=== PATIENT | female | born 1955 | race Caucasian/White ===

== ENCOUNTER 2025-09-07 11:50 | Emergency (ER) | payer MEDICARE, SELFPAY ==
[2025-09-07 11:53] VITALS: BP 183/96
--- NOTE | 2025-09-07 12:49 | ED.GENMED ---
History of Present Illness
General
Chief Complaint: Fainting/Passed Out
Source: patient
Exam Limitations: none
Time Seen by Provider: 09/07/25 12:14
Nursing documentation reviewed up to this point in time: agreed with
History of Present Illness
History of Present Illness:
Patient is a 70-year-old female with history of hypertension who presents to the emergency department after syncopal event. Patient states that around 1030 this morning she was standing in her daughter's kitchen cooking when she became very hot and
sweaty. She then felt lightheaded prior to falling. She states she was briefly unconscious, only for a few seconds. This fall was witnessed and she is confident that she did not hit her head. Patient denies any preceding chest pain or shortness
of breath.
Since the syncopal event, she has felt well and denies any symtpoms of lightheadedness, dizziness, or weakness.
She states that she landed on her left side and reports left shoulder pain and left rib pain. She denies any neck pain, back pain, or pain in lower extremities. No headache, visual changes, or vomiting.
Patient states she had not eaten anything prior to syncopal event this morning. She did have a similar episode a few months ago however was able to sit down prior to fainting.
Patient is not on any oral anticoagulation.
Review of Systems
Review of Systems
Allergies reviewed?: Yes
All Other Systems: ROS reviewed and negative except as documented in HPI and ROS
Phy Exam
Physical Exam
Physical Exam:
Vitals: Hypertensive, otherwise vital signs stable. Afebrile
General: Patient is very well-appearing, in no distress
Skin: Warm and dry, no rashes or lesions
Head: Normocephalic, atraumatic
Eyes: Sclera nonicteric. EOMs intact. No nystagmus.
Throat: Protecting airway
Neck: Normal ROM, no cervical spine tenderness, no meningismus
Cardiac: Regular rate and rhythm, no murmurs. 2+ palpable radial pulse. Tenderness to left lateral chest wall without ecchymoses or deformity.
Pulm: Normal respiratory effort. Lungs clear bilaterally
Abdomen: No abdominal tenderness.
Extremities: No evidence of traumatic injuries to bilateral lower extremities. Minor contusion to left shoulder. Bilateral upper and lower extremities neurovascularly intact
Neuro: AAOx3. CN II-XII grossly intact. No facial droop or asymmetry. Steady gait. No focal neurologic deficits.
Psychiatric: Normal affect.
Course
Orders/Labs/Results
Orders:
Orders
09/07/25 11:58
Electrocardiogram (*1) Urgent
Reason for Study: Syncope
EKG- Treatment ONCE
09/07/25 12:48
0.9% Sodium Chloride 1000 ml [Nss] 1,000 ml IV BOLUS
Acetaminophen [Tylenol] 650 mg PO NOW STA
Ribs, Left 3 View W/PA Chest CR [CR Ribs-left 3 Vw W/pa Chest] Urgent
Comment:
Reason For Exam: fall, left rib pain
Shoulder, Left 2 View CR [CR Shoulder - Left Min 2 View*] Urgent
Comment:
Reason For Exam: fall, left shoulder pain
09/07/25 13:01
Complete Blood Count/With Diff Urgent
Comprehensive Metabolic Panel Urgent
Troponin I Urgent
09/07/25 15:22
Incentive Spirometry [Rx Incentive Spirometry] [RESP] Urgent
Frequency: q1h while awake
09/07/25 15:28
Sling Left-Treatment ONCE
Abnormal Lab Results
09/07/25
13:01
WBC 12.3 H 10^3/uL
(4.8-10.8)
Abs Immat Gran (auto) 0.1 H 10^3/uL
(0-0.05)
Absolute Neuts (auto) 9.5 H 10^3/uL
(1.4-6.5)
Neutrophils % 77.3 H %
(42.2-75.2)
Lymphocytes % 14.1 L %
(20.5-51.1)
Sodium 129 L mmol/L
(135-145)
Chloride 95 L mmol/L
(98-107)
BUN 19 H mg/dl
(7-17)
Glucose 109 H mg/dl
(70-99)
09/07/25 13:01
09/07/25 13:01
Vital Signs
Initial and Last Documented VS:
Initial Vital Signs
Temp Pulse Resp BP Pulse Ox
97.5 F 70 18 183/96 100
09/07/25 11:53 09/07/25 11:53 09/07/25 11:53 09/07/25 11:53 09/07/25 11:53
Last Documented Vital Signs
Temp Pulse Resp BP Pulse Ox
97.5 F 64 16 161/77 100
09/07/25 11:53 09/07/25 15:15 09/07/25 15:15 09/07/25 15:00 09/07/25 12:49
MDM/Problems Addressed
Differential Diagnosis Includes:
Not limited to: Acute dehydration, electrolyte abnormality, vasovagal syncope, orthostatic hypotension, proximal humerus fracture, shoulder dislocation, rib fracture, cardiac arrhythmia, etc.
MDM/Problems Addressed:
70-year-old female presenting after syncopal event at home today proceeded by lightheadedness and feeling of warmth/heat. No chest pain or shortness of breath. No associated head strike. She has been asymptomatic since fall many hours ago. She does
reports left shoulder and left sided chest wall pain as she apparently landed on that side.
Vitals stable. On exam, patient appears well and in no distress. Cardio/pulmonary assessment unremarkable. No evidence of head or neck trauma. She is alert and oriented, neurologically intact. Minor contusion noted to left shoulder as well as
reproducible tenderness to left lateral chest wall.
History seems most consistent with likely vasovagal syncope versus dehydration. Less likely cardiac. Do not suspect seizure. Will check labs, cardiac enzyme, EKG. Will give IV fluids, tylenol. Will check x-ray imaging of left shoulder and left rib
series.
Update: labs with mild leukocytosis, possibly reactive or related to her recent root canal as she is on antibiotics. Mild hyponatremia noted and discussed with patient � advised repeat lab work in one week.
EKG without evidence of acute ischemia, troponin undetectable.
Left rib series reveals minimally displaced fracture of left lateral fifth rib. No associated pneumothorax. Shoulder x-ray unremarkable.
Patient remains asymptomatic in ED. She has received a liter of IV fluids. Favor vasovagal syncope versus dehydration. No evidence of serious cause.
Her left chest wall pain is well managed and ultimately feel that she is stable for discharge home. Discussed pain control and incentive spirometer. Advises repeat lab work with PCP to ensure sodium trending up. Advised to stay well hydrated. While
today I have an extremely low suspicion for cardiac process � did discuss outpatient follow-up to consider possible Holter monitor for further syncope workup. Strict return precautions discussed. Patient comfortable with discharge home.
Chronic conditions affecting care:
Hypertension
Acute Exacerbation and/or Progression of Chronic Illness:
Acutely hypertensive
*Radiology
Radiology exam reviewed: preliminary read by ED provider (Left rib series x-ray reviewed by me-fifth rib fracture; shoulder x-ray reviewed by me without evidence of acute fracture or dislocation) and radiology read reviewed
*Pulse Oximetry
SaO2: 100
Oxygen Mode of Delivery: Room air
Patient hypoxic: no
*EKG
Interpreted by ED Provider?: Yes
EKG Intrepretation Date: 09/07/25
Interpretation: abnormal
Comparison EKG: no comparison EKG present
Heart Rate: 64
Rate: normal
Rhythm: sinus and PVC's
[place]: normal axis
Interval: normal QT interval
QRS Pattern: left vent hypertrophy
Ischemia: no ischemia
*[place] Operator Interpretation
Rate: normal
Interpretation: normal
Heart Rate: 62
Rhythm: sinus
*Critical Care Note
Total Time (30-74mins, 75-104mins- exclusive of procedures): Not Applicable
ED Attending Note
-
Portions of this chart may have been created with voice recognition software.� Occasional wrong word or��sound alike� substitutions may have occurred due to the inherent limitations of voice recognition software.
Discharge Plan
Departure
Patient Disposition: Home (Routine Discharge)
Date of Disposition: 09/07/25
Time of Disposition: 15:28
Patient with high blood pressure during this ER visit?: Yes
Condition: Good
Discharge Problem:
Syncope, Fracture of left fifth rib, Contusion of left shoulder
Instructions: Syncope (Fainting) (DC), Rib fracture or bruised rib - ED (DC), BLOOD PRESSURE
Referrals:
Jose F Kyle MD [Active, Cardiology] - Next open appointment
Tone Shanks MD [Active, Orthopedics]
Tariq Le MD [Family Provider, Family Practice] - Follow up in 5-7 days
Activity Restrictions/Additional Instructions:
RETURN TO THE EMERGENCY DEPARTMENT ANY HEADACHE/NECK PAIN, CHANGES IN MENTAL STATUS, CHEST PAIN, SHORTNESS OF BREATH, PERSISTENT LIGHTHEADEDNESS OR DIZZINESS, FEVER OR PRODUCTIVE COUGH, INTRACTABLE PAIN, WORSENING IN CURRENT SYMPTOMS, OR ANY OTHER
CONCERNS
- As discussed�your white blood cell count was mildly elevated today in the emergency department. Your sodium level was low. You were given a liter of IV fluids however please have your lab work repeated with your primary care within 1 week to
ensure trending up.
- You were found to have a fracture of your left fifth rib. Please continue to take Tylenol and/or Motrin and apply lidocaine patches as needed for pain. Use incentive spirometer 10 times per hour when awake to continually inflate your lungs.
- Follow-up with your primary care provider in 1 week for repeat lab work. Please see cardiology for further evaluation given the few episodes of syncope past few months. You may require further testing or heart monitoring.
Monitor your symptoms closely and return to the emergency department with any acute worsening/new symptoms or any other concerns
Interventions
Interventions:
*General Assessment Last Done: 09/07/25 11:53
*Neglect/Abuse Screening Last Done: 09/07/25 11:53
*ED COVID-19 Vaccine History Last Done: 09/07/25 13:08
*ED Influenza Vaccine History Last Done: 09/07/25 13:08
[facility] Fall Risk Assessment Tool Last Done: 09/07/25 13:08
*Risk Screen - Suicide (C-SSRS) Last Done: 09/07/25 13:09
*Nursing Disposition Last Done: 09/07/25 15:52
ED- Cardiac Assessment Last Done: 09/07/25 13:08
ED- Neurological Assessment Last Done: 09/07/25 13:08
Discharge Date and Time
Discharge Date/Time: 09/07/25 15:53
Print Language: [id number]
[2025-09-07] MEDS: TYLENOL 650 MG PO (13:02)
[2025-09-07] MEDS: NSS 1000 IV (13:02)
[2025-09-07 13:18] LABS: Hematocrit 37.2 % (37.0-47.0); Hemoglobin 13.6 g/dL (12.0-16.0); Mean Corp Hgb Conc. 36.6 g/dL (33.0-37.0); Mean Corpuscular Volume 82.9 fL (81.0-99.0); Nucleated Red Blood Cells % 0 %; Platelet Count 271 10^3/uL (130-400); Red Cell Dist. Width 13.0 % (11.5-14.5)
[2025-09-07 13:39] LABS: ALT (SGPT) 15 U/L (0-35); AST (SGOT) 24 U/L (14-36); Albumin 4.1 g/dl (3.5-5.0); Alkaline Phosphatase 74 U/L (38-126); Blood Urea Nitrogen 19 mg/dl (7-17); Calcium 9.5 mg/dl (8.4-10.2); Carbon Dioxide 27 mmol/L (22-30); Chloride 95 mmol/L (98-107); Glucose 109 mg/dl (70-99); Potassium 3.6 mmol/L (3.5-5.1); Sodium 129 mmol/L (135-145); Total Protein 7.1 g/dl (6.3-8.2); eGFR > 60.00
[2025-09-07 13:44] VITALS: BP 161/77
[2025-09-07 13:51] LABS: Troponin I < 0.012 ng/ml
[2025-09-07 14:00] VITALS: BP 161/73
[2025-09-07 15:00] VITALS: BP 161/77
== END 2025-09-07 15:53 | disposition home or self-care (01) ==
LOC: EMR 11:50
PROVIDERS: Physician Assistant; EMERGENCY PHYSICIAN Emergency Medicine; FAMILY PHYSICIAN Family Medicine
DX: R55 Syncope and collapse (principal); S22.32XA Fracture of one rib, left side, initial encounter for closed fracture; S40.012A Contusion of left shoulder, initial encounter; W18.39XA Other fall on same level, initial encounter; Y93.G3 Activity, cooking and baking; Y92.000 Kitchen of unspecified non-institutional (private) residence as the place of occurrence of the external cause; D72.829 Elevated white blood cell count, unspecified; E87.1 Hypo-osmolality and hyponatremia; I49.3 Ventricular premature depolarization; I10 Essential (primary) hypertension
CPT/HCPCS: 99284; 71101; 73030; 80053; 84484; 85025; 93005